=== PATIENT | female | born 1990 | race Caucasian/White ===

== ENCOUNTER 2019-02-17 19:26 | Emergency (ER) | payer MEDICAID ==
[~2019-02-17] VITALS: Ht 162.6 cm; Wt 53.0 kg
[~2019-02-17 19:26] MED LIST: FLUT15.845 NAS; HYDR50TA13 PO; METH36TA4 PO; OLOP2.5D5 EACHEYE; RISP0.5T24 PO; SUMA50TA3 PO; TRAZ50TA66 PO
[2019-02-17 19:27] VITALS: BP 115/73
[2019-02-17] MEDS ORDERED: PLEASE ENTER HEIGHT AND WEIGHT MC SCH (19:30)
[2019-02-17] MEDS: IBUPROFEN 200 MG TABLET PO ONE ×2 (20:12→20:16)
[2019-02-17] MEDS ORDERED: IBUPROFEN 200 MG TABLET ONE (20:13)
[2019-02-17] MEDS ORDERED: ACETAMINOPHEN 325 MG TABLET ONE (20:19)
--- NOTE | 2019-02-17 20:28 | NUR ---
PT TRANSFERED SELF TO WHEELCHAIR FROM [facility]. FRIEND AT BEDSIDE. AWAITING DC INSTRUCTIONS.
[2019-02-17] MEDS ORDERED: ACETAMINOPHEN 325 MG TABLET PO ONE (20:30)
--- NOTE | 2019-02-17 20:35 | NUR ---
DC EDUCATION PROVIDED, PT DEMONSTRATES UNDERSTANDING. PT WHEELED TO DC WITH RN AND FRIEND. TAXI VOUCHER PROVIDED TO BUS STATION FOR TRANSPORT HOME.
== END 2019-02-17 20:37 | disposition home or self-care (01) ==
LOC: ED 20:25
DX: S70.02XA Contusion of left hip, initial encounter (principal); F17.210 Nicotine dependence, cigarettes, uncomplicated; Z90.49 Acquired absence of other specified parts of digestive tract; Y04.8XXA Assault by other bodily force, initial encounter; Y93.01 Activity, walking, marching and hiking; Y92.410 Unspecified street and highway as the place of occurrence of the external cause; Y99.8 Other external cause status
CPT/HCPCS: 99283

== ENCOUNTER 2019-02-28 10:09 | Emergency (ER) | payer MEDICAID ==
[~2019-02-28] VITALS: Ht 162.6 cm; Wt 55.0 kg
[2019-02-28 10:33] VITALS: BP 122/72
--- NOTE | 2019-02-28 12:30 | NUR ---
Patient/Caregiver given discharge instructions and they have confirmed that they understand the instructions. Patient ambulatory with steady gait.
== END 2019-02-28 12:30 | disposition home or self-care (01) ==
LOC: ED 12:20
DX: J06.9 Acute upper respiratory infection, unspecified (principal); F17.200 Nicotine dependence, unspecified, uncomplicated; Z90.49 Acquired absence of other specified parts of digestive tract
CPT/HCPCS: 71046; 99283

== ENCOUNTER 2019-03-17 13:37 | Emergency (ER) | payer MEDICAID ==
[~2019-03-17] VITALS: Ht 162.6 cm; Wt 50.3 kg
[2019-03-17 13:41] VITALS: BP 107/71
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
[2019-03-17 14:30] LABS: BASOPHILS # (AUTO) 0.02 x10^3/uL (0-0.1); BASOPHILS % (AUTO) 0 % (0-1); EOSINOPHILS # (AUTO) 0.01 x10^3/uL (0-0.4); EOSINOPHILS % (AUTO) 0 % (1-7); LYMPHOCYTES # (AUTO) 2.27 x10^3/uL (1-3.4); LYMPHOCYTES % (AUTO) 30 % (22-44); MD NO; MEAN CORPUSCULAR HEMOGLOBIN 31.8 pg (27.0-34.8); MEAN CORPUSCULAR VOLUME 96.3 fL (80-100); MEAN PLATELET VOLUME 7.4 fL (7.4-10.4); MONOCYTES # (AUTO) 0.57 x10^3/uL (0.2-0.8); MONOCYTES % (AUTO) 8 % (2-9); NEUTROPHILS # (AUTO) 4.71 x10^3/uL (1.8-6.8); NEUTROPHILS % (AUTO) 62 % (42-75); PLATELET COUNT 340 x10^3/uL (130-400)
[2019-03-17 14:36] LABS: ANION GAP 4 mmol/L (5-15); CALCIUM 8.7 mg/dL (8.5-10.1); CHLORIDE 110 mmol/L (98-107); CREATININE 0.93 mg/dL (0.55-1.02)
[2019-03-17 14:43] LABS: CULTURE INDICATED? YES; MICROSCOPIC INDICATED
--- NOTE | 2019-03-17 14:56 | NUR ---
SW/[facility] AT BEDSIDE
[2019-03-17 15:22] LABS: AMPHETAMINE SCREEN, URINE Negative (Negative); BARBITURATE SCREEN, URINE Negative (Negative); BENZODIAZEPINE SCREEN, URINE Negative (Negative); CANNABINOID SCREEN, URINE Negative (Negative); COCAINE SCREEN, URINE Negative (Negative); METHADONE SCREEN, URINE Negative (Negative); OPIATE SCREEN, URINE Negative (Negative)
[2019-03-17] MEDS ORDERED: ACETAMINOPHEN 500 MG TABLET ONE (15:25)
[2019-03-17] MEDS ORDERED: ACETAMINOPHEN 500 MG TABLET PO ONE (15:30)
--- NOTE | 2019-03-17 15:32 | NUR ---
OFFICER CAIN # [id number] AT BEDSIDE.
== END 2019-03-17 15:52 | disposition home or self-care (01) ==
LOC: ED 14:00
DX: S39.012A Strain of muscle, fascia and tendon of lower back, initial encounter (principal); T76.21XA Adult sexual abuse, suspected, initial encounter; Z90.49 Acquired absence of other specified parts of digestive tract; X58.XXXA Exposure to other specified factors, initial encounter; Y93.89 Activity, other specified; Y92.89 Other specified places as the place of occurrence of the external cause; Y99.8 Other external cause status
CPT/HCPCS: 36415; 72072; 72110; 80048; 80307; 81001; 84703; 85025; 87086; 87147; 99284

== ENCOUNTER 2019-03-18 14:34 | Emergency (ER) | payer MEDICAID ==
[~2019-03-18] VITALS: Ht 162.6 cm; Wt 52.0 kg
--- NOTE | 2019-03-18 14:53 | NUR ---
PT AMBULATORY WITH STEADY GAIT TO ROOM. CHANGING INTO GOWN NOW. ACCOMPANIED BY TWO MALES WHO CAME WITH HER.
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
[2019-03-18 15:03] VITALS: BP 111/70
--- NOTE | 2019-03-18 15:09 | NUR ---
PT STATES SHE HAD ONE BOUT OF INCONTINENCE (URINE) THIS MORNING BUT MADE IT TO THE TOILET TO HAVE A BM. PT IS ON HER PHONE TEXTING WHILE SPEAKING WITH THIS RN. ABLE TO MOVE ALL EXTREMITIES APPROPRIATELY. NO N/T.
[2019-03-18] MEDS ORDERED: IBUPROFEN 600 MG TABLET ONE (15:22)
--- NOTE | 2019-03-18 15:24 | NUR ---
PT MEDICATED PER EMAR. AUTOMOTIVE TIRE TECHNICIAN AT BEDSIDE SPEAKING WITH PT NOW.
[2019-03-18] MEDS ORDERED: IBUPROFEN 600 MG TABLET PO ONE (15:30)
--- NOTE | 2019-03-18 15:42 | NUR ---
PT PROVIDED WITH BUS PASS. RESTING ON [employer]. VSS. SIERRA.
--- NOTE | 2019-03-18 15:59 | NUR ---
PT AWARE OF DC PLAN. GETTING DRESSED NOW.
--- NOTE | 2019-03-18 16:15 | NUR ---
Leobardo RN: Pt provided w/ d/c papers, prescription, sanitary napkins, underwear & housing resources. Requests to stay in her room so that her boyfriend can be seen by ER provider. Informed them both that he must follow proper check in process for calf pain.
== END 2019-03-18 16:20 | disposition home or self-care (01) ==
LOC: ED 16:17
DX: S23.3XXA Sprain of ligaments of thoracic spine, initial encounter (principal); G89.11 Acute pain due to trauma; F32.9 Major depressive disorder, single episode, unspecified; Z90.49 Acquired absence of other specified parts of digestive tract; Y08.89XA Assault by other specified means, initial encounter; Y93.89 Activity, other specified; Y92.89 Other specified places as the place of occurrence of the external cause; Y99.8 Other external cause status
CPT/HCPCS: 99283

== ENCOUNTER 2019-03-30 07:03 | Emergency (ER) | payer MEDICAID ==
[~2019-03-30] VITALS: Ht 162.6 cm; Wt 58.0 kg
[2019-03-30] MEDS ORDERED: METHOCARBAMOL 750 MG TABLET ONE (07:22)
[2019-03-30] MEDS ORDERED: METHOCARBAMOL 750 MG TABLET PO ONE (07:30)
--- NOTE | 2019-03-30 07:32 | NUR ---
PT TO IMAGING
[2019-03-30 07:51] VITALS: BP 115/61
--- NOTE | 2019-03-30 08:15 | NUR ---
PT STATED SHE WAS HAVING A SEIZURE HOWEVER WHEN OFFERED CRACKERS SEIZURE ACTIVITY STOPPED.
--- NOTE | 2019-03-30 08:54 | NUR ---
DISCHARGE INSTRUCTIONS REVIEWED
== END 2019-03-30 08:56 | disposition home or self-care (01) ==
LOC: ED 07:17
DX: S22.060A Wedge compression fracture of T7-T8 vertebra, initial encounter for closed fracture (principal); S32.000A Wedge compression fracture of unspecified lumbar vertebra, initial encounter for closed fracture; Y04.8XXA Assault by other bodily force, initial encounter; Y93.89 Activity, other specified; Y92.89 Other specified places as the place of occurrence of the external cause; Y99.8 Other external cause status
CPT/HCPCS: 72072; 72110; 99283

== ENCOUNTER 2019-04-01 14:53 | Emergency (ER) | payer MEDICAID ==
[~2019-04-01] VITALS: Ht 162.6 cm; Wt 50.0 kg
[2019-04-01 14:55] VITALS: BP 120/57
[2019-04-01] MEDS ORDERED: IBUPROFEN 200 MG TABLET ONE (15:16)
[2019-04-01] MEDS ORDERED: NEOSPORIN OINT. PKT 1 PACKET ONE (15:16)
[2019-04-01] MEDS ORDERED: IBUPROFEN 600 MG TABLET PO ONE (16:00)
--- NOTE | 2019-04-01 16:09 | NUR ---
[facility] HERE TALKING WITH PATIENT
== END 2019-04-01 17:37 | disposition home or self-care (01) ==
LOC: ED 16:22
DX: T25.221A Burn of second degree of right foot, initial encounter (principal); T25.222A Burn of second degree of left foot, initial encounter; G89.11 Acute pain due to trauma; Z72.9 Problem related to lifestyle, unspecified; Z75.9 Unspecified problem related to medical facilities and other health care; Z90.49 Acquired absence of other specified parts of digestive tract; Y08.89XA Assault by other specified means, initial encounter; Y93.89 Activity, other specified; Y92.89 Other specified places as the place of occurrence of the external cause; Y99.8 Other external cause status
CPT/HCPCS: 16020; 99284

== ENCOUNTER 2019-04-03 03:59 | Emergency (ER) | payer MEDICAID ==
[~2019-04-03] VITALS: Ht 162.6 cm; Wt 54.0 kg
[2019-04-03 04:07] VITALS: BP 113/81
[2019-04-03] MEDS ORDERED: LORazepam 1MG TABLET PO ONE (04:30)
[2019-04-03] MEDS ORDERED: LORazepam 1MG TABLET ONE (04:30)
== END 2019-04-03 06:44 | disposition home or self-care (01) ==
LOC: ED 04:32
DX: F15.129 Other stimulant abuse with intoxication, unspecified (principal); J45.909 Unspecified asthma, uncomplicated; Z72.9 Problem related to lifestyle, unspecified; Z75.9 Unspecified problem related to medical facilities and other health care; Z63.8 Other specified problems related to primary support group; Z59.0 Homelessness
CPT/HCPCS: 99283

== ENCOUNTER 2019-04-03 21:34 | Emergency (ER) | payer MEDICAID ==
[~2019-04-03] VITALS: Ht 152.4 cm; Wt 55.0 kg
[2019-04-03] MEDS ORDERED: LORazepam 1MG TABLET PO ONE (22:00)
[2019-04-03] MEDS ORDERED: OLANZAPINE 10 MG TABLET PO ONE (22:00)
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
[2019-04-03] MEDS ORDERED: OLANZAPINE 10 MG TABLET ONE (22:12)
[2019-04-03] MEDS ORDERED: LORazepam 1MG TABLET ONE (22:13)
--- NOTE | 2019-04-03 22:21 | NUR ---
Break rn:Pt medicated per mar. given warm blanket per request. vss. No other immediate needs.
[2019-04-03 22:22] VITALS: BP 122/72
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
--- NOTE | 2019-04-03 22:38 | NUR ---
WATER ANALYST TO ROOM ATTEMPTING TO DRAW LABS, WATER ANALYST IS FEMALE AND PATIENT REFUSED TO LET HER DRAW LABS, STATED "I CAN ONLY HAVE MALE STAFF"
--- NOTE | 2019-04-03 22:55 | NUR ---
MALE LEVI MAKER TO ROOM TO DRAW LABS
[2019-04-03 23:12] LABS: BASOPHILS # (AUTO) 0.02 x10^3/uL (0-0.1); BASOPHILS % (AUTO) 0 % (0-1); EOSINOPHILS # (AUTO) 0.04 x10^3/uL (0-0.4); EOSINOPHILS % (AUTO) 1 % (1-7); LYMPHOCYTES # (AUTO) 1.73 x10^3/uL (1-3.4); LYMPHOCYTES % (AUTO) 33 % (22-44); MD NO; MEAN PLATELET VOLUME 7.6 fL (7.4-10.4); MONOCYTES % (AUTO) 10 % (2-9); NEUTROPHILS # (AUTO) 2.99 x10^3/uL (1.8-6.8); NEUTROPHILS % (AUTO) 57 % (42-75); PLATELET COUNT 269 x10^3/uL (130-400); RED BLOOD COUNT 3.63 x10^6/uL (3.82-5.3); RED CELL DISTRIBUTION WIDTH 12.4 % (9.6-15.2)
[2019-04-03 23:22] LABS: ALBUMIN 3.4 g/dL (3.4-5.0); ANION GAP 4 mmol/L (5-15); CALCIUM 8.6 mg/dL (8.5-10.1); CHLORIDE 109 mmol/L (98-107); CREATININE 0.71 mg/dL (0.55-1.02)
[2019-04-03] MEDS ORDERED: POTASSIUM CHLORIDE 20 MEQ TAB.ER.PRT PO ONE (23:30)
--- NOTE | 2019-04-03 23:44 | NUR ---
PHYSICAL ASSESSMENT CHARTED UNDER WRONG PATIENT.
[2019-04-04] MEDS ORDERED: POTASSIUM CHLORIDE 20 MEQ TAB.ER.PRT ONE (00:05)
--- NOTE | 2019-04-04 00:11 | NUR ---
DC PAPERWORK GIVEN WITH TAXI VOUCHER. AMBULATORY WITH STEADY GAIT.
== END 2019-04-04 00:15 | disposition home or self-care (01) ==
LOC: ED 23:14
DX: S06.0X0A Concussion without loss of consciousness, initial encounter (principal); R51 Headache; J45.909 Unspecified asthma, uncomplicated; F17.200 Nicotine dependence, unspecified, uncomplicated; G40.909 Epilepsy, unspecified, not intractable, without status epilepticus; Z90.49 Acquired absence of other specified parts of digestive tract; Y08.89XA Assault by other specified means, initial encounter; Y93.89 Activity, other specified; Y92.009 Unspecified place in unspecified non-institutional (private) residence as the place of occurrence of the external cause; Y99.8 Other external cause status
CPT/HCPCS: 36415; 70450; 71045; 80048; 80307; 82040; 84703; 85025; 99284

== ENCOUNTER 2019-04-07 17:33 | Emergency (ER) | payer MEDICAID ==
[~2019-04-07] VITALS: Ht 162.6 cm; Wt 52.7 kg
[2019-04-07 17:36] VITALS: BP 108/63
--- NOTE | 2019-04-07 19:19 | NUR ---
Discharge instructions discussed with patient, verbalizes understanding.
== END 2019-04-07 19:20 | disposition home or self-care (01) ==
LOC: ED 19:00
DX: S63.502A Unspecified sprain of left wrist, initial encounter (principal); S60.212A Contusion of left wrist, initial encounter; F17.200 Nicotine dependence, unspecified, uncomplicated; G40.909 Epilepsy, unspecified, not intractable, without status epilepticus; J45.909 Unspecified asthma, uncomplicated; Q86.0 Fetal alcohol syndrome (dysmorphic); Z72.9 Problem related to lifestyle, unspecified; Z90.49 Acquired absence of other specified parts of digestive tract; X58.XXXA Exposure to other specified factors, initial encounter; Y93.89 Activity, other specified; Y92.89 Other specified places as the place of occurrence of the external cause; Y99.8 Other external cause status
CPT/HCPCS: 29260; 99283

== ENCOUNTER 2019-04-12 17:36 | Emergency (ER) | payer MEDICAID ==
[~2019-04-12] VITALS: Ht 162.6 cm; Wt 50.0 kg
--- NOTE | 2019-04-12 17:47 | NUR ---
NAX1
[2019-04-12 17:59] VITALS: BP 101/67
--- NOTE | 2019-04-12 19:07 | NUR ---
NILX2
--- NOTE | 2019-04-12 19:24 | NUR ---
NILX3
== END 2019-04-12 19:41 | disposition left against medical advice (07) ==
LOC: ED 19:35
DX: R51 Headache (principal); R19.7 Diarrhea, unspecified; Z53.21 Procedure and treatment not carried out due to patient leaving prior to being seen by health care provider

== ENCOUNTER 2019-04-13 10:34 | Emergency (ER) | payer MEDICAID ==
[~2019-04-13] VITALS: Ht 162.6 cm; Wt 50.5 kg
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
[2019-04-13 11:50] LABS: BASOPHILS # (AUTO) 0.03 x10^3/uL (0-0.1); BASOPHILS % (AUTO) 1 % (0-1); EOSINOPHILS # (AUTO) 0.08 x10^3/uL (0-0.4); EOSINOPHILS % (AUTO) 2 % (1-7); LYMPHOCYTES # (AUTO) 1.57 x10^3/uL (1-3.4); LYMPHOCYTES % (AUTO) 30 % (22-44); MD NO; MEAN CORPUSCULAR HEMOGLOBIN 32.8 pg (27.0-34.8); MEAN CORPUSCULAR HGB CONC 32.8 g/dL (32.4-35.8); MEAN CORPUSCULAR VOLUME 99.9 fL (80-100); MEAN PLATELET VOLUME 7.5 fL (7.4-10.4); MONOCYTES # (AUTO) 0.44 x10^3/uL (0.2-0.8); MONOCYTES % (AUTO) 8 % (2-9); NEUTROPHILS # (AUTO) 3.16 x10^3/uL (1.8-6.8); NEUTROPHILS % (AUTO) 60 % (42-75); PLATELET COUNT 295 x10^3/uL (130-400); RED BLOOD COUNT 4.07 x10^6/uL (3.82-5.3); RED CELL DISTRIBUTION WIDTH 13.2 % (9.6-15.2)
[2019-04-13 12:01] LABS: CHLORIDE 108 mmol/L (98-107)
[2019-04-13 12:20] LABS: ALANINE AMINOTRANSFERASE 23 U/L (12-78); ALBUMIN 3.6 g/dL (3.4-5.0); ALKALINE PHOSPHATASE 110 U/L (45-117); ANION GAP 6 mmol/L (5-15); TOTAL PROTEIN 7.3 g/dL (6.4-8.2)
[2019-04-13 12:25] LABS: BILIRUBIN,TOTAL 0.2 mg/dL (0.2-1.0)
--- NOTE | 2019-04-13 12:46 | NUR ---
STRAIGHT CATH COMPLETED W/O DIFFICULTY. DONE WITH JERAMY DALY 2ND PERSON
[2019-04-13 12:47] VITALS: BP 112/72
[2019-04-13 13:04] LABS: MICROSCOPIC NOT IND
--- NOTE | 2019-04-13 13:04 | NUR ---
LATE ENTRY 1210, PT CONTINUES TO SLEEP UNLESS STIMULATED. IF SHE WANTSSOMETHING SPECIFIC SHE LETS HER NEEDS KNOW AND SPEECH IS CLEAR. FOR EXAMPLE SHE VERBALIZED TO ME "CAN I HAVE MY PHONE SO I CAN LISTEN TO MY MUSIC" BUT WHEN I ASK HER QUESTIONS SHE RESPONDS LETHARGICALLY. VSS. FRIEND REMAINS AT BEDSIDE AND IS HYPERVIGILANT TO HER NEEDS.
[2019-04-13 13:08] LABS: CULTURE INDICATED? NO
--- NOTE | 2019-04-13 13:29 | NUR ---
SBAR HAND-OFF REPORT RECEIVED FROM ANGELIQUE NEUMANN. ASSUMING CARE OF PATIENT.
[2019-04-13 13:50] LABS: AMPHETAMINE SCREEN, URINE Negative (Negative); BARBITURATE SCREEN, URINE Negative (Negative); BENZODIAZEPINE SCREEN, URINE Negative (Negative); CANNABINOID SCREEN, URINE Negative (Negative); COCAINE SCREEN, URINE Negative (Negative); METHADONE SCREEN, URINE Negative (Negative); OPIATE SCREEN, URINE Negative (Negative)
--- NOTE | 2019-04-13 14:44 | NUR ---
ALL QUESTIONS ADDRESSED. PT PROVIDED WITH SANDWICH, MILK, CAB VOUCHER, AND DISPOSABLE UNDERWEAR. ASSISTED TO RESTROOM, GAIT STRONG AND STEADY, MINIMAL BALANCE ASSISTANCE REQUIRED. PT DENIES ANY FURTHER NEEDS OR CONCERNS AT THIS TIME. DISCHARGED TO LUBRICATION SUPERVISOR WITHOUT ISSUE.
== END 2019-04-13 14:47 | disposition home or self-care (01) ==
LOC: ED 12:20
DX: R53.83 Other fatigue (principal); F17.200 Nicotine dependence, unspecified, uncomplicated; Z90.49 Acquired absence of other specified parts of digestive tract
CPT/HCPCS: 36415; 80053; 80307; 81003; 84703; 85025; 99283

== ENCOUNTER 2019-04-16 01:24 | Emergency (ER) | payer MEDICAID ==
[~2019-04-16] VITALS: Ht 162.6 cm; Wt 59.1 kg
[2019-04-16 01:30] VITALS: BP 111/68
--- NOTE | 2019-04-16 01:38 | NUR ---
MAXD AT BS. PT. AWAITING PROVIDER EVAL.
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
[2019-04-16] MEDS ORDERED: ACETAMINOPHEN 325 MG TABLET PO ONE (02:30)
[2019-04-16] MEDS ORDERED: ACETAMINOPHEN 325 MG TABLET ONE (02:40)
[2019-04-16] MEDS ORDERED: ONDANSETRON ODT 8 MG ONE (02:47)
[2019-04-16] MEDS ORDERED: ONDANSETRON ODT 4 MG PO ONE (03:00)
--- NOTE | 2019-04-16 03:09 | NUR ---
PER [facility], IF PT. WANTED A SART EXAM WE ARE TO SEND HER FOR THE EXAM THEY REPORT THEY WILL NOT BE TAKING HER FOR IT. SART CALLED AND PT. PROVIDED WITH CAB VOUCHER TO GO FOR SART EXAM. PT. A&O X 4 AND AMBULATORY WITH STEADY GAIT. PUPILS NOW 3MM, EQUAL, ROUND AND REACTIVE TO LIGHT.
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
== END 2019-04-16 03:30 | disposition home or self-care (01) ==
LOC: ED 02:57
DX: T74.21XA Adult sexual abuse, confirmed, initial encounter (principal); G43.909 Migraine, unspecified, not intractable, without status migrainosus; J45.909 Unspecified asthma, uncomplicated; F17.210 Nicotine dependence, cigarettes, uncomplicated; Z90.49 Acquired absence of other specified parts of digestive tract; Y04.8XXA Assault by other bodily force, initial encounter; Y93.89 Activity, other specified; Y92.410 Unspecified street and highway as the place of occurrence of the external cause; Y99.8 Other external cause status
CPT/HCPCS: 99283; Q0162

== ENCOUNTER 2019-04-22 21:56 | Emergency (ER) | payer MEDICAID ==
[~2019-04-22] VITALS: Ht 162.6 cm; Wt 53.0 kg
[2019-04-22] MEDS ORDERED: KETOROLAC 30 MG/1 ML ONE (22:13)
[2019-04-22] MEDS ORDERED: PROCHLORPERAZINE 5 MG/ML, 2ML ONE (22:13)
[2019-04-22] MEDS ORDERED: PROCHLORPERAZINE 5 MG/ML, 2ML IVPush ONE (22:30)
[2019-04-22] MEDS ORDERED: KETOROLAC 30 MG/1 ML IVPush ONE (22:30)
[2019-04-22 23:05] VITALS: BP 132/74
== END 2019-04-22 23:08 | disposition home or self-care (01) ==
LOC: ED 22:03
DX: R51 Headache (principal); J45.909 Unspecified asthma, uncomplicated; F17.200 Nicotine dependence, unspecified, uncomplicated; Z72.89 Other problems related to lifestyle; Z72.9 Problem related to lifestyle, unspecified; Z90.49 Acquired absence of other specified parts of digestive tract; Z00.00 Encounter for general adult medical examination without abnormal findings
CPT/HCPCS: 96374; 96375; 99283; J0780; J1885

== ENCOUNTER 2019-04-27 08:01 | Emergency (ER) | payer MEDICAID ==
[~2019-04-27] VITALS: Ht 162.6 cm; Wt 53.6 kg
[2019-04-27 08:03] VITALS: BP 122/86
[2019-04-27] MEDS ORDERED: NEOSPORIN OINT. PKT 1 PACKET ONE (08:37)
--- NOTE | 2019-04-27 08:49 | NUR ---
bacitraicin and bandage applied by brayden castaneda.
== END 2019-04-27 09:01 | disposition home or self-care (01) ==
LOC: ED 08:49
DX: S90.822A Blister (nonthermal), left foot, initial encounter (principal); G40.909 Epilepsy, unspecified, not intractable, without status epilepticus; F17.200 Nicotine dependence, unspecified, uncomplicated; Z72.9 Problem related to lifestyle, unspecified; Z90.49 Acquired absence of other specified parts of digestive tract; Z59.0 Homelessness; X58.XXXA Exposure to other specified factors, initial encounter; Y93.89 Activity, other specified; Y92.89 Other specified places as the place of occurrence of the external cause; Y99.8 Other external cause status
CPT/HCPCS: 99283

== ENCOUNTER 2019-07-03 09:33 | Emergency (ER) | payer MEDICAID ==
[~2019-07-03] VITALS: Ht 162.6 cm; Wt 52.7 kg
[~2019-07-03 09:33] MED LIST changes: -HYDR50TA13 PO; +HYDR50TA99 PO
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
[2019-07-03] MEDS ORDERED: PLEASE ENTER HEIGHT AND WEIGHT MC SCH (10:00)
[2019-07-03] MEDS ORDERED: OXYcodone/APAP 5/325MG TABLET ONE (10:07)
[2019-07-03] MEDS ORDERED: IBUPROFEN 600 MG TABLET ONE (10:07)
[2019-07-03 10:14] VITALS: BP 112/70
[2019-07-03] MEDS ORDERED: IBUPROFEN 600 MG TABLET PO ONE (10:30)
[2019-07-03] MEDS ORDERED: OXYcodone/APAP 5/325MG TABLET PO ONE (10:30)
== END 2019-07-03 11:39 ==
LOC: ED 11:35
DX: J20.9 Acute bronchitis, unspecified (principal); G40.909 Epilepsy, unspecified, not intractable, without status epilepticus
CPT/HCPCS: 71045; 99283

== ENCOUNTER 2019-07-04 17:57 | Emergency (ER) | payer MEDICAID ==
[~2019-07-04] VITALS: Ht 162.6 cm; Wt 51.2 kg
[2019-07-04 18:03] VITALS: BP 107/67
--- NOTE | 2019-07-04 18:56 | NUR ---
REPORT GIVEN TO BIPIN
--- NOTE | 2019-07-04 18:57 | NUR ---
report of pt from shelley valencia and assuming care of pt at this time.
--- NOTE | 2019-07-04 19:15 | NUR ---
DR. STOUT AT FOR PT HISTORY AND ASSESSMENT.
[2019-07-04] MEDS ORDERED: PROMETHAZINE 25 MG/ML, 1ML ONE (19:30)
[2019-07-04] MEDS ORDERED: PROMETHAZINE 25 MG/ML, 1ML IM ONE (19:30)
[2019-07-04] MEDS ORDERED: KETOROLAC 30 MG/1 ML IM ONE (19:30)
[2019-07-04] MEDS ORDERED: KETOROLAC 60 MG/2 ML ONE (19:31)
--- NOTE | 2019-07-04 19:51 | NUR ---
PT REFUSING MEDICATIONS AT THIS TIME.
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
== END 2019-07-04 20:22 | disposition home or self-care (01) ==
LOC: ED 18:57
DX: R51 Headache (principal); R11.0 Nausea; J45.909 Unspecified asthma, uncomplicated; F17.200 Nicotine dependence, unspecified, uncomplicated; Z90.49 Acquired absence of other specified parts of digestive tract
CPT/HCPCS: 99281

== ENCOUNTER 2019-07-30 12:50 | Emergency (ER) | payer MEDICAID ==
[~2019-07-30] VITALS: Ht 165.1 cm; Wt 63.7 kg
[2019-07-30 13:38] LABS: CULTURE INDICATED? YES; MICROSCOPIC INDICATED
--- NOTE | 2019-07-30 13:53 | NUR ---
requested records from [facility].
[2019-07-30 14:05] LABS: BASOPHILS # (AUTO) 0.02 x10^3/uL (0-0.1); BASOPHILS % (AUTO) 0 % (0-1); EOSINOPHILS # (AUTO) 0.03 x10^3/uL (0-0.4); EOSINOPHILS % (AUTO) 0 % (1-7); LYMPHOCYTES # (AUTO) 2.09 x10^3/uL (1-3.4); LYMPHOCYTES % (AUTO) 26 % (22-44); MD NO; MEAN CORPUSCULAR HEMOGLOBIN 31.6 pg (27.0-34.8); MEAN CORPUSCULAR HGB CONC 33.5 g/dL (32.4-35.8); MEAN CORPUSCULAR VOLUME 94.2 fL (80-100); MEAN PLATELET VOLUME 7.1 fL (7.4-10.4); MONOCYTES % (AUTO) 9 % (2-9); NEUTROPHILS # (AUTO) 5.31 x10^3/uL (1.8-6.8); NEUTROPHILS % (AUTO) 65 % (42-75); PLATELET COUNT 356 x10^3/uL (130-400); RED BLOOD COUNT 4.46 x10^6/uL (3.82-5.3); RED CELL DISTRIBUTION WIDTH 13.2 % (9.6-15.2)
[2019-07-30 14:15] LABS: ALBUMIN 3.4 g/dL (3.4-5.0); ANION GAP 4 mmol/L (5-15); CALCIUM 9.3 mg/dL (8.5-10.1); CHLORIDE 105 mmol/L (98-107)
--- NOTE | 2019-07-30 14:19 | NUR ---
PT RESTING IN ROOM. ON CELL PHONE. VSS. NAD
[2019-07-30 14:21] LABS: ALANINE AMINOTRANSFERASE 19 U/L (12-78); ALKALINE PHOSPHATASE 136 U/L (45-117); BILIRUBIN,TOTAL 0.5 mg/dL (0.2-1.0); CREATININE 0.84 mg/dL (0.55-1.02); TOTAL PROTEIN 8.1 g/dL (6.4-8.2)
[2019-07-30 14:51] VITALS: BP 125/92
--- NOTE | 2019-07-30 14:52 | NUR ---
PT EDUCATED ON PLAN OF CARE. TO GET CT SCAN.
[2019-07-30] MEDS ORDERED: SODIUM CHLORIDE FLUSH 10ML SYR IVF ONE (15:00)
--- NOTE | 2019-07-30 15:33 | NUR ---
pt to ct w tech
--- NOTE | 2019-07-30 15:39 | NUR ---
PT TO CT AT THIS TIME
[2019-07-30] MEDS ORDERED: OMNIPAQUE 350 MG/ML, 100ML BOTTLE ONE (16:21)
== END 2019-07-30 16:52 | disposition home or self-care (01) ==
LOC: ED 13:30
DX: N30.00 Acute cystitis without hematuria (principal); F17.200 Nicotine dependence, unspecified, uncomplicated
CPT/HCPCS: 36415; 71045; 74177; 80053; 81001; 83690; 84703; 85025; 87086; 99285; Q9967

== ENCOUNTER 2019-08-13 13:13 | Emergency (ER) | payer MEDICAID ==
[~2019-08-13] VITALS: Ht 162.6 cm; Wt 60.0 kg
[2019-08-13 13:54] VITALS: BP 102/66
--- NOTE | 2019-08-13 14:11 | NUR ---
REPORT FROM ANGELIQUE MARTÍNEZ. PT SITTING UP IN [facility], AWAKE/ALERT, NAD NOTED.
[2019-08-13 14:22] LABS: BASOPHILS # (AUTO) 0.02 x10^3/uL (0-0.1); BASOPHILS % (AUTO) 0 % (0-1); EOSINOPHILS # (AUTO) 0.02 x10^3/uL (0-0.4); EOSINOPHILS % (AUTO) 0 % (1-7); LYMPHOCYTES # (AUTO) 1.49 x10^3/uL (1-3.4); LYMPHOCYTES % (AUTO) 24 % (22-44); MD NO; MEAN CORPUSCULAR HEMOGLOBIN 31.2 pg (27.0-34.8); MEAN CORPUSCULAR HGB CONC 32.9 g/dL (32.4-35.8); MEAN CORPUSCULAR VOLUME 94.8 fL (80-100); MEAN PLATELET VOLUME 7.5 fL (7.4-10.4); MONOCYTES # (AUTO) 0.58 x10^3/uL (0.2-0.8); MONOCYTES % (AUTO) 10 % (2-9); NEUTROPHILS % (AUTO) 66 % (42-75); PLATELET COUNT 348 x10^3/uL (130-400); RED BLOOD COUNT 3.98 x10^6/uL (3.82-5.3); RED CELL DISTRIBUTION WIDTH 13.8 % (9.6-15.2)
--- NOTE | 2019-08-13 14:23 | NUR ---
PT TRANSFERED SELF FROM BEDSIDE COMMODE TO RNEY. MOVING ALL EXTREMITIES. PT REPORTS CONTINUED BILAT LEG PAIN/WEAKNESS AND "LOTS OF ANXIETY". ALSO REPORTS PAINFUL URINATION AND "MISSED PERIOD" X TWO MONTHS. UA/UDS COLLECTED AND SENT TO LAB.
[2019-08-13 14:31] LABS: ALANINE AMINOTRANSFERASE 24 U/L (12-78); ALBUMIN 3.3 g/dL (3.4-5.0); ANION GAP 8 mmol/L (5-15); CALCIUM 8.7 mg/dL (8.5-10.1); CHLORIDE 107 mmol/L (98-107); CREATININE 0.83 mg/dL (0.55-1.02)
[2019-08-13 14:36] LABS: ALKALINE PHOSPHATASE 122 U/L (45-117); BILIRUBIN,TOTAL 0.4 mg/dL (0.2-1.0); CREATINE KINASE, TOTAL 119 U/L (26-192); TOTAL PROTEIN 7.1 g/dL (6.4-8.2)
[2019-08-13 14:38] LABS: MICROSCOPIC INDICATED
[2019-08-13 14:40] LABS: CULTURE INDICATED? YES
[2019-08-13 14:47] LABS: AMPHETAMINE SCREEN, URINE Negative (Negative); BARBITURATE SCREEN, URINE Negative (Negative); BENZODIAZEPINE SCREEN, URINE Negative (Negative); CANNABINOID SCREEN, URINE Negative (Negative); COCAINE SCREEN, URINE Negative (Negative); METHADONE SCREEN, URINE Negative (Negative); OPIATE SCREEN, URINE Negative (Negative)
--- NOTE | 2019-08-13 15:28 | NUR ---
DC EDUCATION PROVIDED, PT DEMONSTRATES UNDERSTANDING. PT AMBULATED STEADILY TO DC WITHOUT DIFFICULTY. SO TO TRANSPORT PT HOME.
== END 2019-08-13 15:31 | disposition home or self-care (01) ==
LOC: ED 14:39
DX: N30.00 Acute cystitis without hematuria (principal); M79.662 Pain in left lower leg; M79.661 Pain in right lower leg; J45.909 Unspecified asthma, uncomplicated; Z90.49 Acquired absence of other specified parts of digestive tract
CPT/HCPCS: 36415; 80053; 80307; 81001; 82550; 84703; 85025; 87077; 87086; 99283

== ENCOUNTER 2019-10-03 22:21 | Emergency (ER) | payer MEDICAID ==
[~2019-10-03] VITALS: Ht 162.6 cm; Wt 51.0 kg
[2019-10-03 22:27] VITALS: BP 111/72
[2019-10-04] MEDS ORDERED: ACETAMINOPHEN 500 MG TABLET PO ONE (00:30)
[2019-10-04] MEDS ORDERED: IBUPROFEN 600 MG TABLET PO ONE (01:30)
[2019-10-04] MEDS ORDERED: IBUPROFEN 600 MG TABLET ONE (01:37)
== END 2019-10-04 01:05 ==
LOC: ED 10-04 01:04
DX: S06.9X1A Unspecified intracranial injury with loss of consciousness of 30 minutes or less, initial encounter (principal); G43.C0 Periodic headache syndromes in child or adult, not intractable; X58.XXXA Exposure to other specified factors, initial encounter; Y93.89 Activity, other specified; Y92.89 Other specified places as the place of occurrence of the external cause; Y99.8 Other external cause status
CPT/HCPCS: 70450; 99284

== ENCOUNTER 2019-10-04 16:59 | Emergency (ER) | payer MEDICAID ==
[~2019-10-04] VITALS: Ht 162.6 cm; Wt 55.0 kg
[2019-10-04] MEDS ORDERED: KETOROLAC 60 MG/2 ML ONE (17:44)
[2019-10-04] MEDS ORDERED: ONDANSETRON ODT 4 MG ONE (17:44)
[2019-10-04 17:48] VITALS: BP 114/66
--- NOTE | 2019-10-04 17:48 | NUR ---
PT MEDICATED PER EMAR.
[2019-10-04] MEDS ORDERED: KETOROLAC 30 MG/1 ML IM ONE (18:00)
[2019-10-04] MEDS ORDERED: ONDANSETRON ODT 4 MG PO ONE (18:00)
--- NOTE | 2019-10-04 18:00 | NUR ---
PT REPORTS RELIEF OF NAUSEA. STANDING IN ROOM EATING REESES AND DRINKING SODA W/ FAMILY. PT VERBALIZED UNDERSTANDING OF DC INSTRUCTIONS. AMBULATED TO THE DC DESK W/ A STEADY GAIT.
== END 2019-10-04 18:02 | disposition home or self-care (01) ==
LOC: ED 17:45
DX: G44.319 Acute post-traumatic headache, not intractable (principal); J45.909 Unspecified asthma, uncomplicated; G40.909 Epilepsy, unspecified, not intractable, without status epilepticus; R11.0 Nausea; Z90.710 Acquired absence of both cervix and uterus
CPT/HCPCS: 96372; 99283; J1885; Q0162

== ENCOUNTER 2019-10-16 17:03 | Emergency (ER) | payer MEDICAID ==
[~2019-10-16] VITALS: Ht 162.6 cm; Wt 51.8 kg
[2019-10-16 17:31] VITALS: BP 104/67
[2019-10-16] MEDS ORDERED: IBUPROFEN 600 MG TABLET ONE (18:27)
[2019-10-16] MEDS ORDERED: IBUPROFEN 200 MG TABLET PO ONE (18:30)
--- NOTE | 2019-10-16 18:40 | NUR ---
NO ANSWER X1
== END 2019-10-16 19:02 ==
LOC: ED 18:46
DX: G89.11 Acute pain due to trauma (principal); M25.532 Pain in left wrist; M79.642 Pain in left hand; J45.909 Unspecified asthma, uncomplicated; V29.9XXA Motorcycle rider (driver) (passenger) injured in unspecified traffic accident, initial encounter; Y93.73 Activity, racquet and hand sports; Y92.488 Other paved roadways as the place of occurrence of the external cause; Y99.8 Other external cause status
CPT/HCPCS: 29125; 99284

== ENCOUNTER 2019-11-09 20:34 | Emergency (ER) | payer MEDICAID ==
[~2019-11-09] VITALS: Ht 162.6 cm; Wt 52.5 kg
[2019-11-09] MEDS ORDERED: IBUPROFEN 600 MG TABLET ONE (21:18)
[2019-11-09 22:00] VITALS: BP 100/60
== END 2019-11-09 22:04 | disposition home or self-care (01) ==
LOC: ED 21:47
DX: S91.331A Puncture wound without foreign body, right foot, initial encounter (principal); J45.909 Unspecified asthma, uncomplicated; G40.909 Epilepsy, unspecified, not intractable, without status epilepticus; F17.210 Nicotine dependence, cigarettes, uncomplicated; Z90.49 Acquired absence of other specified parts of digestive tract; W22.8XXA Striking against or struck by other objects, initial encounter; Y93.89 Activity, other specified; Y92.410 Unspecified street and highway as the place of occurrence of the external cause; Y99.8 Other external cause status
CPT/HCPCS: 99283; 99406

== ENCOUNTER 2019-11-10 22:01 | Emergency (ER) | payer MEDICAID ==
[~2019-11-10] VITALS: Ht 162.6 cm; Wt 51.2 kg
[2019-11-10 22:02] VITALS: BP 113/50
== END 2019-11-10 22:51 | disposition home or self-care (01) ==
LOC: ED 22:50
DX: J20.9 Acute bronchitis, unspecified (principal); J45.909 Unspecified asthma, uncomplicated; G40.909 Epilepsy, unspecified, not intractable, without status epilepticus; F17.290 Nicotine dependence, other tobacco product, uncomplicated; Z90.49 Acquired absence of other specified parts of digestive tract
CPT/HCPCS: 71046; 99283; 99406

== ENCOUNTER 2019-11-24 23:37 | Emergency (ER) | payer MEDICAID ==
[~2019-11-24] VITALS: Ht 162.6 cm; Wt 48.0 kg
[2019-11-24 23:38] VITALS: BP 137/110
== END 2019-11-25 01:02 | disposition home or self-care (01) ==
LOC: ED 11-25 00:56
DX: S30.0XXA Contusion of lower back and pelvis, initial encounter (principal); Z90.49 Acquired absence of other specified parts of digestive tract; Z88.2 Allergy status to sulfonamides; W22.8XXA Striking against or struck by other objects, initial encounter; Y93.89 Activity, other specified; Y92.89 Other specified places as the place of occurrence of the external cause; Y99.8 Other external cause status
CPT/HCPCS: 72080; 99283

== ENCOUNTER 2019-12-26 23:31 | Emergency (ER) | payer MEDICAID ==
[~2019-12-26] VITALS: Ht 162.6 cm; Wt 49.2 kg
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
[2019-12-27] MEDS ORDERED: METHOCARBAMOL 750 MG TABLET PO ONE
[2019-12-27] MEDS ORDERED: KETOROLAC 60 MG/2 ML IM ONE
[2019-12-27] MEDS ORDERED: KETOROLAC 60 MG/2 ML ONE (00:03)
[2019-12-27] MEDS ORDERED: METHOCARBAMOL 750 MG TABLET ONE (00:03)
[2019-12-27 00:39] VITALS: BP 103/74
--- NOTE | 2019-12-27 00:53 | NUR ---
[facility] AT BEDSIDE
== END 2019-12-27 01:30 | disposition home or self-care (01) ==
LOC: ED 12-27 01:25
DX: S39.012A Strain of muscle, fascia and tendon of lower back, initial encounter (principal); G89.11 Acute pain due to trauma; R10.9 Unspecified abdominal pain; J45.909 Unspecified asthma, uncomplicated; Z90.49 Acquired absence of other specified parts of digestive tract; Y04.8XXA Assault by other bodily force, initial encounter; Y93.89 Activity, other specified; Y92.59 Other trade areas as the place of occurrence of the external cause; Y99.8 Other external cause status
CPT/HCPCS: 71045; 96372; 99283; J1885

== ENCOUNTER 2020-01-01 09:10 | Emergency (ER) | payer MEDICAID ==
[~2020-01-01] VITALS: Ht 160 cm; Wt 47.7 kg
[2020-01-01] MEDS ORDERED: KETOROLAC 30 MG/1 ML ONE (09:24)
[2020-01-01] MEDS ORDERED: KETOROLAC 30 MG/1 ML IM ONE (09:30)
[2020-01-01 09:42] LABS: BASOPHILS # (AUTO) 0.02 x10^3/uL (0-0.1); BASOPHILS % (AUTO) 0 % (0-1); EOSINOPHILS # (AUTO) 0.08 x10^3/uL (0-0.4); EOSINOPHILS % (AUTO) 1 % (1-7); LYMPHOCYTES # (AUTO) 1.35 x10^3/uL (1-3.4); LYMPHOCYTES % (AUTO) 22 % (22-44); MD NO; MEAN CORPUSCULAR HEMOGLOBIN 30.1 pg (27.0-34.8); MEAN CORPUSCULAR HGB CONC 32.6 g/dL (32.4-35.8); MEAN CORPUSCULAR VOLUME 92.1 fL (80-100); MEAN PLATELET VOLUME 7.2 fL (7.4-10.4); MONOCYTES # (AUTO) 0.56 x10^3/uL (0.2-0.8); MONOCYTES % (AUTO) 9 % (2-9); NEUTROPHILS # (AUTO) 4.27 x10^3/uL (1.8-6.8); NEUTROPHILS % (AUTO) 68 % (42-75); PLATELET COUNT 364 x10^3/uL (130-400); RED BLOOD COUNT 4.29 x10^6/uL (3.82-5.3); RED CELL DISTRIBUTION WIDTH 15.6 % (9.6-15.2)
[2020-01-01 09:53] LABS: ALANINE AMINOTRANSFERASE 16 U/L (12-78); ALBUMIN 3.6 g/dL (3.4-5.0); ANION GAP 8 mmol/L (5-15); CALCIUM 9.3 mg/dL (8.5-10.1); CHLORIDE 109 mmol/L (98-107); CREATININE 0.97 mg/dL (0.55-1.02)
[2020-01-01 09:57] LABS: ALKALINE PHOSPHATASE 105 U/L (45-117); BILIRUBIN,TOTAL 0.5 mg/dL (0.2-1.0); TOTAL PROTEIN 7.8 g/dL (6.4-8.2)
[2020-01-01 10:44] LABS: MICROSCOPIC INDICATED
[2020-01-01 11:00] VITALS: BP 118/77
--- NOTE | 2020-01-01 12:10 | NUR ---
PT PROVIDED WITH DISPOSABLE UNDERWEAR/PADS, WATER, APPLESAUCE, AND JEANS UPON DISCHARGE.
== END 2020-01-01 12:13 | disposition home or self-care (01) ==
LOC: ED 10:23
DX: N93.8 Other specified abnormal uterine and vaginal bleeding (principal); N30.00 Acute cystitis without hematuria; R10.84 Generalized abdominal pain; R10.2 Pelvic and perineal pain; J45.909 Unspecified asthma, uncomplicated; G40.909 Epilepsy, unspecified, not intractable, without status epilepticus; Z88.2 Allergy status to sulfonamides; Z90.49 Acquired absence of other specified parts of digestive tract
CPT/HCPCS: 36415; 76830; 80053; 81001; 84703; 85025; 87086; 99284

== ENCOUNTER 2020-04-09 16:29 | Emergency (ER) | payer MEDICAID ==
[~2020-04-09] VITALS: Ht 162.6 cm; Wt 47.2 kg
--- NOTE | 2020-04-09 17:19 | NUR ---
PT STATES NOT TO CALL [place] [employer] SHE DOESNT LIKE POLICE AND WILL CALL HERSELF IF SHE WANTS TO...
[2020-04-09 18:17] VITALS: BP 112/65
== END 2020-04-09 18:30 | disposition home or self-care (01) ==
LOC: ED 18:11
DX: S00.83XA Contusion of other part of head, initial encounter (principal); S60.212A Contusion of left wrist, initial encounter; S60.222A Contusion of left hand, initial encounter; G40.909 Epilepsy, unspecified, not intractable, without status epilepticus; Z90.49 Acquired absence of other specified parts of digestive tract; Y04.8XXA Assault by other bodily force, initial encounter; Y93.89 Activity, other specified; Y92.488 Other paved roadways as the place of occurrence of the external cause; Y99.8 Other external cause status
CPT/HCPCS: 99284

== ENCOUNTER 2020-11-08 13:50 | Inpatient (IN) | payer MEDICAID ==
[~2020-11-08] VITALS: Ht 162.6 cm; Wt 44.0 kg
--- NOTE | 2020-11-08 13:50 | NUR ---
IS AT THE BEDSIDE FOR ULTRASOUND STUDY
[2020-11-08] MEDS ORDERED: SODIUM CHLORIDE 0.9% 1,000 ML IV ONE (14:00)
--- NOTE | 2020-11-08 14:11 | NUR ---
PHLEBOTOMY IS AT THE BEDSIDE FOR BLOOD SAMPLING
[2020-11-08] MEDS ORDERED: MORPHINE SULFATE 4 MG/ML, 1ML ONE ×2 (14:12→15:21)
--- NOTE | 2020-11-08 14:17 | NUR ---
MONUMENT ERECTOR AND ERP ARE AT THE BEDSIDE FOR EVALUATION.
[2020-11-08] MEDS: MORPHINE SULFATE 4 MG/ML, 1ML IVPush PRN ×2 (14:18→15:25)
--- NOTE | 2020-11-08 14:25 | NUR ---
NAILING MACHINE OPERATOR IS AT THE BEDSIDE FOR STUDY.
[2020-11-08] MEDS ORDERED: PLEASE ENTER HEIGHT AND WEIGHT MC SCH (14:30)
[2020-11-08 14:43] LABS: BASOPHILS % (AUTO) 0 % (0-1); EOSINOPHILS % (AUTO) 0 % (1-7); LYMPHOCYTES % (AUTO) 16 % (22-44); MEAN CORPUSCULAR HEMOGLOBIN 31.9 pg (27.0-34.8); MEAN CORPUSCULAR HGB CONC 34.2 g/dL (32.4-35.8); MEAN PLATELET VOLUME 7.4 fL (7.4-10.4); MONOCYTES % (AUTO) 4 % (2-9); NEUTROPHILS % (AUTO) 80 % (42-75); PLATELET COUNT 345 x10^3/uL (130-400)
[2020-11-08 14:44] LABS: ALANINE AMINOTRANSFERASE 18 U/L (12-78); ALBUMIN 3.3 g/dL (3.4-5.0); ANION GAP 4 mmol/L (5-15); CALCIUM 8.5 mg/dL (8.5-10.1); CHLORIDE 107 mmol/L (98-107); CREATININE 0.93 mg/dL (0.55-1.02)
--- NOTE | 2020-11-08 14:47 | NUR ---
DR. CASH AT BEDSIDE. US COMPLETE.
[2020-11-08 14:49] LABS: PROTHROMBIN TIME 10.7 Seconds (9.6-11.5)
[2020-11-08] MEDS ORDERED: SODIUM CHLORIDE 0.9% 1,000ML IVBOLUS ONE (15:00)
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
[2020-11-08 15:01] LABS: ALKALINE PHOSPHATASE 100 U/L (45-117); BILIRUBIN,TOTAL 0.3 mg/dL (0.2-1.0); TOTAL PROTEIN 7.2 g/dL (6.4-8.2)
[2020-11-08 15:17] LABS: PARTIAL THROMBOPLASTIN TIME < 23 Seconds (25-31)
--- NOTE | 2020-11-08 15:18 | NUR ---
PT'S FRIEND, SAMUEL, AT BEDSIDE. BEDSIDE REPORT TO GRACIELA PEGUERO'S PRIMARY RN.
--- NOTE | 2020-11-08 15:28 | NUR ---
MD IS AT THE BEDSIDE FOR DISPO, AND PLAN OF CARE EDUCATION FOR FRIEND AT THE BEDSIDE. WE ARE AWAITING [facility] TO CALL FOR TRANSPORT.
[2020-11-08] MEDS ORDERED: EPINEPHRINE 1 MG/ML, 1ML ONE (15:51)
[2020-11-08] MEDS ORDERED: BUPIVACAINE/PF 0.25% ONE (15:51)
[2020-11-08] MEDS ORDERED: MIDAZOLAM 1 MG/ML, 2ML ONE (15:53)
[2020-11-08] MEDS ORDERED: FENTANYL PF 100 MCG/2ML ONE (15:54)
[2020-11-08] MEDS ORDERED: EPHEDRINE 50 MG/ML, 1ML IVPush PRN (16:30)
[2020-11-08] MEDS ORDERED: OXYcodone 5 MG/5 ML ORAL.SOL UDC PO PRN (16:30)
[2020-11-08] MEDS ORDERED: ACETAMINOPHEN 325 MG TABLET PO PRN (16:30)
[2020-11-08] MEDS ORDERED: HYDROmorphone 1 MG/ML, 1ML INJ IVPush PRN (16:30)
[2020-11-08] MEDS ORDERED: LABETALOL 5MG/ML, 20ML IV PRN (16:30)
[2020-11-08] MEDS ORDERED: hydrALAzine 20 MG/ML, 1ML IV PRN (16:30)
[2020-11-08] MEDS ORDERED: ONDANSETRON 2MG/ML, 2ML IVPush PRN (16:30)
[2020-11-08] MEDS ORDERED: PROMETHAZINE 25 MG/ML, 1ML IVPush PRN (16:30)
[2020-11-08] MEDS ORDERED: FENTANYL PF 100 MCG/2ML IV PRN (16:30)
[2020-11-08] MEDS ORDERED: ROCURONIUM 10MG/ML,5ML ONE (16:57)
[2020-11-08] MEDS ORDERED: SUCCINYLCHOLINE 20 MG/ML, 10ML ONE (16:57)
[2020-11-08] MEDS ORDERED: CEFAZOLIN 1,000 MG ONE (16:57)
[2020-11-08] MEDS ORDERED: PROPOFOL 10 MG/ML, 20ML ONE (16:57)
[2020-11-08] MEDS ORDERED: NEOSTIGMINE 1 MG/ML, 10ML ONE (16:57)
[2020-11-08] MEDS ORDERED: GLYCOPYRROLATE 0.2MG/1ML, 5ML ONE (16:57)
[2020-11-08] MEDS ORDERED: ONDANSETRON 2MG/ML, 2ML ONE (16:57)
[2020-11-08] MEDS ORDERED: DEXAMETHASONE 4 MG/ML, 1ML ONE (16:57)
[2020-11-08] MEDS ORDERED: OXYcodone/APAP 5/325MG TABLET PO PRN (19:30)
[2020-11-08] MEDS ORDERED: HYDROmorphone 1 MG/ML, 1ML INJ IV PRN (19:30)
[2020-11-08] MEDS ORDERED: ONDANSETRON 2MG/ML, 2ML IV PRN (19:30)
[2020-11-08] MEDS ORDERED: IBUPROFEN 600 MG TABLET PO PRN (19:30)
[2020-11-08] MEDS ORDERED: KETOROLAC 30 MG/1 ML IV PRN (19:30)
[2020-11-08 19:40] VITALS: BP 98/60
[2020-11-08] MEDS ORDERED: OXYC-302 PO (20:15)
== END 2020-11-08 21:40 | disposition home or self-care (01) | DRG 545 ==
LOC: ED 15:17 → EDIP 15:43 → 4NE 18:30
PROVIDERS: ADMIT Obstetrics & Gynecology Female Pelvic Medicine and Reconstructive Surgery; ATTEND Obstetrics & Gynecology Female Pelvic Medicine and Reconstructive Surgery
PROC: 0UB64ZZ Excision of Left Fallopian Tube, Percutaneous Endoscopic Approach (ICD-10-PCS; principal; 2020-11-08 16:00)
DX: O00.202 Left ovarian pregnancy without intrauterine pregnancy (principal); R57.1 Hypovolemic shock; G40.909 Epilepsy, unspecified, not intractable, without status epilepticus; I10 Essential (primary) hypertension; J45.909 Unspecified asthma, uncomplicated; Z88.2 Allergy status to sulfonamides; Z88.8 Allergy status to other drugs, medicaments and biological substances; Z91.040 Latex allergy status
CPT/HCPCS: 36415; 76830; 80053; 84702; 85025; 85610; 85730; 86850; 86900; 86923; 87635; 88305; 93005; 96374; 96376; G0378; J0171; J0690; J1100; J2250; J2405; J2704; J2710; J3010; J0330; J2270; J7030

== ENCOUNTER 2020-11-22 19:25 | Emergency (ER) | payer MEDICAID ==
[~2020-11-22] VITALS: Ht 162.6 cm; Wt 52.3 kg
[~2020-11-22 19:25] MED LIST changes: +OXYC-302 PO
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
[2020-11-22] MEDS ORDERED: SODIUM CHLORIDE FLUSH 10ML SYR IVF ONE (20:00)
[2020-11-22 20:05] LABS: BASOPHILS % (AUTO) 1 % (0-1); EOSINOPHILS % (AUTO) 1 % (1-7); LYMPHOCYTES % (AUTO) 40 % (22-44); MEAN CORPUSCULAR HEMOGLOBIN 31.8 pg (27.0-34.8); MEAN CORPUSCULAR HGB CONC 34.6 g/dL (32.4-35.8); MEAN PLATELET VOLUME 6.5 fL (7.4-10.4); MONOCYTES % (AUTO) 9 % (2-9); NEUTROPHILS % (AUTO) 50 % (42-75); PLATELET COUNT 407 x10^3/uL (130-400); RED CELL DISTRIBUTION WIDTH 14.1 % (9.6-15.2)
[2020-11-22 20:09] LABS: MICROSCOPIC AUTO
[2020-11-22 20:16] LABS: ALANINE AMINOTRANSFERASE 12 U/L (12-78); ALBUMIN 3.6 g/dL (3.4-5.0); ANION GAP 4 mmol/L (5-15); CALCIUM 8.6 mg/dL (8.5-10.1); CHLORIDE 110 mmol/L (98-107); CREATININE 0.76 mg/dL (0.55-1.02)
[2020-11-22 20:20] LABS: ALKALINE PHOSPHATASE 96 U/L (45-117); BILIRUBIN,TOTAL 0.5 mg/dL (0.2-1.0); TOTAL PROTEIN 7.1 g/dL (6.4-8.2)
--- NOTE | 2020-11-22 20:37 | NUR ---
SPD AT BEDSIDE.
--- NOTE | 2020-11-22 20:47 | NUR ---
PT RESTING ON GURNEY. NADN. GUADARRAMA.
--- NOTE | 2020-11-22 21:16 | NUR ---
REPORT GIVEN TO ANTHONY ARECHIGA RN.
--- NOTE | 2020-11-22 21:16 | NUR ---
RECEIVED REPORT FROM RADHA MERINO, TRANSFER OF CARE.
--- NOTE | 2020-11-22 21:18 | NUR ---
PT OFF UNIT IN IMAGING.
[2020-11-22] MEDS ORDERED: OMNIPAQUE 350 MG/ML, 150 ML BOTTLE ONE (21:28)
[2020-11-22 23:34] VITALS: BP 94/60
== END 2020-11-22 23:55 | disposition home or self-care (01) ==
LOC: ED 19:55
DX: N30.00 Acute cystitis without hematuria (principal); R10.84 Generalized abdominal pain; G40.909 Epilepsy, unspecified, not intractable, without status epilepticus; Z90.49 Acquired absence of other specified parts of digestive tract; Z88.2 Allergy status to sulfonamides
CPT/HCPCS: 36415; 74177; 80053; 81001; 84702; 84703; 85025; 86850; 86900; 87086; 99285; Q9967